=== PATIENT | male | born 1990 | race American Indian/Alaskan Native ===

== ENCOUNTER 2018-01-07 20:48 | Emergency (ER) | payer SELFPAY ==
[2018-01-07 21:07] VITALS: BP 121/71
[2018-01-07] MEDS ORDERED: MOTRIN PO ONE (22:03)
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
== END 2018-01-08 01:50 | disposition home or self-care (01) ==
LOC: ED 20:48
DX: L02.411 Cutaneous abscess of right axilla (principal)
CPT/HCPCS: 93005; 93010

== ENCOUNTER 2021-03-19 00:48 | Emergency (ER) | payer OTHER ==
[2021-03-19] MEDS ORDERED: IBUPROFEN 800 MG TAB PO ONE (00:53)
[2021-03-19 00:56] VITALS: BP 117/84
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
== END 2021-03-19 01:40 ==
LOC: ED 00:48
DX: S20.211A Contusion of right front wall of thorax, initial encounter (principal); S20.212A Contusion of left front wall of thorax, initial encounter; S00.83XA Contusion of other part of head, initial encounter; Y08.89XA Assault by other specified means, initial encounter; Y93.89 Activity, other specified; Y92.89 Other specified places as the place of occurrence of the external cause; Y99.8 Other external cause status
CPT/HCPCS: 71046